=== PATIENT | male | born 1955 | race Caucasian/White ===

== ENCOUNTER → 2016-11-05 | Outpatient (CLI) | payer OTHER ==
--- NOTE | 2016-11-05 20:26 | RAD ---
Indication: Left lower extremity swelling. Grayscale, color-flow and duplex Doppler evaluation of bilateral lower extremity deep venous systems was performed. The right lower extremity deep venous system shows normal compressibility with normal response to augmentation and Valsalva. No thrombus is identified. On the left, there is partially occlusive DVT in the lower femoral vein as well as the left popliteal and left posterior tibial vein and left peroneal veins. The left common femoral vein is patent. No fluid collections are seen. Mildly prominent lymph nodes bilateral groins are noted. IMPRESSION: 1. No evidence of right lower extremity DVT. 2. Partially occlusive DVT on the left, as described above. Electronically signed by: Narciso De Paz MD (11/05/2016 8:23 PM)
== END | disposition home or self-care (01) ==
LOC: RAD 18:03
PROVIDERS: ATTEND Family Medicine
DX: I82.402 Acute embolism and thrombosis of unspecified deep veins of left lower extremity (principal); M79.89 Other specified soft tissue disorders
CPT/HCPCS: 93970